=== PATIENT | male | born 1985 | race Caucasian/White ===

== ENCOUNTER → 2024-03-06 | Outpatient (CLI) | payer OTHER ==
[2024-03-07 18:11] LABS: Albumin, Blood 4.3 g/dL (3.4-5.0); Albumin/Globulin Ratio 1.7 (0.8-1.8); Bilirubin, Total 0.5 mg/dL (0.1-1.0); Bun/Creatinine Ratio 24.1 (12.0-20.0); Globulin, Blood 2.5 g/dL (2.2-4.0); Potassium, Blood 4.1 mmol/L (3.5-5.5); Total Protein, Blood 6.8 g/dL (6.4-8.2)
== END | disposition home or self-care (01) ==
LOC: LAB SHORT 18:22 → LAB 18:22
PROVIDERS: Family Medicine
DX: B35.4 Tinea corporis (principal)
CPT/HCPCS: 80053

== ENCOUNTER 2024-06-25 08:40 | Day surgery (SDC) | payer OTHER ==
[2024-06-25] VITALS (10 sets, daily range): BP systolic 123–139; BP diastolic 66–84
[~2024-06-25] VITALS: Ht 193 cm; Wt 112.0 kg
[~2024-06-25 08:40] MED LIST: Dexamethasone Sod Phos 10 MG/ML 1ML VIAL ONE; FentaNYL Citrate 50 MCG/ML 2 ML Injection ONE; Ketorolac Tromethamine 30mg Vial ONE; Lactated Ringer's 1,000 ML IV SCH; MULVITA PO; Ondansetron HCl 2 MG / ML 2ML Vial ONE; Rocuronium Bromide 10 MG/ML 5ML Injection IV ONE; Sugammadex Sodium 200 MG/2ML SDV (100 MG/ML) ONE; propofoL 20 ML IV ONE
[2024-06-25] MEDS ORDERED: Midazolam HCl 1MG / ML 2ML Vial IV PRN (08:55)
[2024-06-25] MEDS ORDERED: Lidocaine HCl 1% 5 ML SYR INJ ONE (09:00)
--- NOTE | 2024-06-25 09:27 | NUR ---
Ambulatory in Day Surgery. History, Chart, Medications and Allergies reviewed before start of procedure.Lungs clear T/O to Auscultation. Patient confirms NPO status and agrees with scheduled surgery. Pre-Op teaching done. Pt verbalizes understanding. Patient States Post-Procedure ride home has been arranged.
[2024-06-25] MEDS ORDERED: Bupivacaine 0.5% HCl 5 MG/ML 30MLVIAL ONE (09:28)
--- NOTE | 2024-06-25 09:28 | NUR ---
REPORT TO Lopez WHO IS ASSUMING CARE.
[2024-06-25] MEDS ORDERED: Rocuronium Bromide 10 MG/ML 5ML Injection IV ONE ×2 (10:12→12:15)
[2024-06-25] MEDS ORDERED: HYDROcodone 5-APAP 325 TAB PO PRN (11:40)
[2024-06-25] MEDS ORDERED: Sugammadex Sodium 200 MG/2ML SDV (100 MG/ML) ONE (12:15)
[2024-06-25] MEDS ORDERED: Ondansetron HCl 2 MG / ML 2ML Vial ONE (12:15)
[2024-06-25] MEDS ORDERED: Dexamethasone Sod Phos 10 MG/ML 1ML VIAL ONE (12:15)
--- NOTE | 2024-06-25 12:35 | NUR ---
Discharge instructions reviewed with patient. Patient verbalizes understanding. Copy given to patient to take home. Prescriptions electronically called in per pt. Dressings X4 c/d/i. Patient States Post-Procedure ride home has been arranged. Discharged via wheelchair to private car for ride home.
== END 2024-06-25 12:40 | disposition home or self-care (01) ==
LOC: ORSCMMR 08:40 → ORD 10:45 → ORSCMMR 12:40
PROVIDERS: Surgery
PROC: 8E0W4CZ Robotic Assisted Procedure of Trunk Region, Percutaneous Endoscopic Approach (ICD-10-PCS; principal; 2024-06-25 10:45)
PROC: 0WUF4JZ Supplement Abdominal Wall with Synthetic Substitute, Percutaneous Endoscopic Approach (ICD-10-PCS; principal; 2024-06-25 10:45)
DX: K42.0 Umbilical hernia with obstruction, without gangrene (principal)
CPT/HCPCS: A9270; C1781; J1100; J1885; J2250; J2405; J2704; J3010; J7120

== ENCOUNTER → 2024-11-12 | Outpatient (CLI) | payer OTHER ==
[~2024-11-12] MED LIST changes: -Dexamethasone Sod Phos 10 MG/ML 1ML VIAL ONE; -FentaNYL Citrate 50 MCG/ML 2 ML Injection ONE; -Ketorolac Tromethamine 30mg Vial ONE; -Lactated Ringer's 1,000 ML IV SCH; -Ondansetron HCl 2 MG / ML 2ML Vial ONE; -Rocuronium Bromide 10 MG/ML 5ML Injection IV ONE; -Sugammadex Sodium 200 MG/2ML SDV (100 MG/ML) ONE; -propofoL 20 ML IV ONE
[2024-11-12 12:31] LABS: Albumin/Globulin Ratio 1.2 (0.8-1.8); Bilirubin, Total 0.6 mg/dL (0.1-1.0); Bun/Creatinine Ratio 27.3 (12.0-20.0); Calcium, Blood 9.7 mg/dL (8.5-10.1); Creatinine, Blood 0.95 mg/dL (0.60-1.20); Globulin, Blood 3.3 g/dL (2.2-4.0); Potassium, Blood 4.1 mmol/L (3.5-5.5); Total Protein, Blood 7.3 g/dL (6.4-8.2)
== END | disposition home or self-care (01) ==
LOC: LAB SHORT 09:35 → LAB 09:35
PROVIDERS: Family Medicine
DX: B35.1 Tinea unguium (principal)
CPT/HCPCS: 80053